=== PATIENT | female | born 1995 | race African-American/Black ===

== ENCOUNTER 2018-11-10 15:52 | Inpatient (IN) ==
[2018-11-10] MEDS ORDERED: ONDANSETRON 4 MG/2 ML VIAL IV PRN (16:09)
[2018-11-10] MEDS ORDERED: DINOPROSTONE VAG GEL 10 MG SYRINGE VAG ONE (16:13)
[2018-11-10] MEDS: LACTATED RINGERS 1,000 ML IV SCH (16:34)
[2018-11-10 16:38] LABS: Basophils % 0.3 % (0.0-0.8); Eosinophils # 0.1 10*3/uL (0.0-0.87); Eosinophils % 1.6 % (0.00-10.9); Hematocrit 33.4 VOL% (35.7-47.0); Hemoglobin 10.5 GM/DL (12.0-16.0); Immature Granulocytes % 0.5 %; Immature Granulocytes Absolute 0.04 #; Lymphocytes # 1.4 10*3/uL (1.4-4.0); Lymphocytes % 18.8 % (21.3-54.2); Mean Corpuscular HGB Conc 31.4 GM/DL (32-36); Mean Corpuscular Hemoglobin 27 PG (27-34); Mean Corpuscular Volume 84.8 FL (87-102); Mean Platelet Volume 11.3 FL (9.6-12.0); Monocytes # 0.6 10*3/uL (0.11-0.8); Monocytes % 8.7 % (1.7-12.7); Neutrophils # 5.2 10*3/uL (1.4-7.4); Neutrophils % 70.1 % (38.7-73.9); Platelet Count 209 T/CUMM (130-400); Red Blood Count 3.94 MC/CUMM (3.8-5.5); Red Cell Distribution Width 13.1 % (9.3-17.3); White Blood Count 7.4 T/CUMM (4-12)
[2018-11-11] MEDS ORDERED: AMPICILLIN INJ 2,000 MG in SODIUM CHLORIDE 0.9% 100 ML IV ONE (02:00)
[2018-11-11] MEDS ORDERED: OXYTOCIN/LR 20 UNIT/1,000 ML BAG IV SCH (02:00)
[2018-11-11] MEDS: LACTATED RINGERS 1,000 ML IV SCH (02:21)
[2018-11-11] MEDS: AMPICILLIN INJ 1,000 MG in SODIUM CHLORIDE 0.9% 100 ML IV SCH ×2 (06:05→10:41)
[2018-11-11] MEDS ORDERED: ePHEDrine 50 MG/ML AMP IV PRN (08:02)
[2018-11-11] MEDS ORDERED: NALOXONE 0.4 MG/ML VIAL IV PRN (08:02)
[2018-11-11] MEDS ORDERED: CITRIC ACID/SODIUM CITRATE 30 ML UDCUP PO ONE (08:02)
[2018-11-11] MEDS ORDERED: LACTATED RINGERS 1,000 ML IV ONE (08:02)
[2018-11-11] MEDS ORDERED: FAMOTIDINE 20 MG/2 ML VIAL IV ONE (08:02)
[2018-11-11] MEDS ORDERED: diphenhydrAMINE 50 MG/1 ML VIAL IV PRN ×2 (08:02)
[2018-11-11] MEDS ORDERED: MEPERIDINE 50 MG/1 ML VIAL IV PRN (08:11)
[2018-11-11] MEDS ORDERED: BUTORPHANOL 2 MG/ML VIAL IV PRN (08:13)
[2018-11-11] MEDS ORDERED: BUTORPHANOL 2 MG/ML VIAL ONE (08:17)
[2018-11-11] MEDS ORDERED: fentaNYL 2 MCG/ROPIV 0.2% EPID 100 ML EPIDURAL SCH (08:30)
[2018-11-11 11:05] LABS: Apearance,Urine CLEAR (Clear); Bilirubin,Urine Negative (Negative); Blood, Urine Negative (Negative); Glucose,Urine (UA) Negative (Negative); Ketones,Urine 5 mg/dL (Negative); Nitrite,Urine Negative (Negative); Protein,Urine Negative; RBC,Urine 1 /HPF (0-4); Squamous Epithelial Cell,Urine Occasional /HPF (0-10); Urine Color Yellow (Yellow); Urine Specific Gravity 1.013 (1.001-1.035); Urine Urobilinogen < 2.0 EU/DL (0.2-1.0); WBC,Urine <1 /HPF (0-6)
[2018-11-11] MEDS ORDERED: miSOPROStol 200 MCG TABLET ONE (11:39)
[2018-11-11] MEDS ORDERED: LIDOCAINE 1% 50 ML VIAL ONE (11:39)
[2018-11-11] MEDS ORDERED: METHYLERGONOVINE 0.2 MG/1 ML AMP ONE (11:40)
[2018-11-11] MEDS ORDERED: DIPH/TET/ACEL PERT BOOSTER VACCINE 0.5 ML VIAL IM ONE (14:15)
[2018-11-11] MEDS ORDERED: oxyCODONE/ACETAMINOPHEN 5-325 MG TABLET PO PRN ×2 (14:15)
[2018-11-11] MEDS ORDERED: HYDROCORTISONE 2.5% RECTAL CREAM 30 GM TUBE TOP PRN (14:15)
[2018-11-11] MEDS ORDERED: MEASLES/MUMPS/RUBELLA VACCINE 0.5 ML VIAL SUBCUT ONE (14:15)
[2018-11-11] MEDS ORDERED: WITCH HAZEL PADS 100/JAR TOP PRN (14:15)
[2018-11-11] MEDS ORDERED: RHO(D) IMMUNE GLOBULIN 300 MCG SYRINGE IM ONE (14:15)
[2018-11-11] MEDS ORDERED: BENZOCAINE 20%/MENTHOL 0.5% SPRAY 56 GM CAN TOP PRN (14:15)
[2018-11-11] MEDS ORDERED: ACETAMINOPHEN 325 MG TABLET PO PRN (14:15)
[2018-11-11] MEDS ORDERED: BISACODYL 10 MG SUPP RECTAL PRN (14:15)
[2018-11-11] MEDS ORDERED: LANOLIN 50% CREAM 0.3 OZ TUBE TOP PRN (14:15)
[2018-11-11] MEDS ORDERED: OXYTOCIN/LR 20 UNIT/1,000 ML BAG IV ONE ×2 (14:19→15:30)
[2018-11-11] MEDS: IBUPROFEN 800 MG TABLET PO PRN (18:43)
[2018-11-11] MEDS: DOCUSATE SODIUM 100 MG CAPSULE PO SCH (22:08)
[2018-11-12 05:39] LABS: Basophils % 0.2 % (0.0-0.8); Eosinophils # 0.1 10*3/uL (0.0-0.87); Eosinophils % 0.9 % (0.00-10.9); Hematocrit 29.7 VOL% (35.7-47.0); Hemoglobin 9.5 GM/DL (12.0-16.0); Immature Granulocytes % 0.5 %; Immature Granulocytes Absolute 0.05 #; Lymphocytes # 1.6 10*3/uL (1.4-4.0); Lymphocytes % 14.6 % (21.3-54.2); Mean Corpuscular Hemoglobin 27 PG (27-34); Mean Corpuscular Volume 84.6 FL (87-102); Mean Platelet Volume 11.2 FL (9.6-12.0); Monocytes # 0.8 10*3/uL (0.11-0.8); Monocytes % 7.1 % (1.7-12.7); Neutrophils # 8.5 10*3/uL (1.4-7.4); Neutrophils % 76.7 % (38.7-73.9); Platelet Count 189 T/CUMM (130-400); Red Blood Count 3.51 MC/CUMM (3.8-5.5); Red Cell Distribution Width 13.1 % (9.3-17.3); White Blood Count 11.1 T/CUMM (4-12)
[2018-11-12] MEDS: DOCUSATE SODIUM 100 MG CAPSULE PO SCH ×3 (09:20→20:59)
[2018-11-12] MEDS: IBUPROFEN 800 MG TABLET PO PRN (19:26)
[2018-11-13 07:13] VITALS: BP 97/52
[2018-11-13] MEDS: DOCUSATE SODIUM 100 MG CAPSULE PO SCH (09:37)
== END 2018-11-13 14:20 | disposition home or self-care (01) | DRG 560 ==
LOC: N.LDOUT 15:52 → N.LD 15:55 → N.OB 11-11 14:28
PROVIDERS: ADMIT Obstetrics & Gynecology; ATTEND Obstetrics & Gynecology

== ENCOUNTER 2020-01-24 20:54 | Inpatient (IN) ==
[~2020-01-24 20:54] MED LIST: OXYTOCIN/LR 20 UNIT/1,000 ML BAG IV SCH
[2020-01-24] MEDS ORDERED: AMPICILLIN 2,000 MG VIAL ONE (21:08)
[2020-01-24] MEDS ORDERED: MEPERIDINE 50 MG/1 ML VIAL ONE (21:09)
[2020-01-24] MEDS ORDERED: ONDANSETRON 4 MG/2 ML VIAL ONE (21:10)
[2020-01-24] MEDS ORDERED: ONDANSETRON 4 MG/2 ML VIAL IV PRN ×2 (21:17→23:19)
[2020-01-24] MEDS ORDERED: fentaNYL 100 MCG/2 ML VIAL ONE ×2 (21:18→21:42)
[2020-01-24] MEDS ORDERED: FAMOTIDINE 20 MG/2 ML VIAL IV ONE (21:18)
[2020-01-24] MEDS ORDERED: ePHEDrine 50 MG/ML AMP ONE (21:18)
[2020-01-24] MEDS ORDERED: CITRIC ACID/SODIUM CITRATE 30 ML UDCUP ONE (21:18)
[2020-01-24] MEDS ORDERED: ePHEDrine 50 MG/ML AMP IV PRN (21:18)
[2020-01-24] MEDS ORDERED: NALOXONE 0.4 MG/ML VIAL IV PRN (21:18)
[2020-01-24] MEDS ORDERED: CITRIC ACID/SODIUM CITRATE 30 ML UDCUP PO ONE (21:18)
[2020-01-24] MEDS ORDERED: OXYTOCIN/LR 20 UNIT/1,000 ML BAG IV ONE ×2 (21:19→23:19)
[2020-01-24] MEDS ORDERED: fentaNYL 2 MCG/ROPIV 0.2% EPID 100 ML EPIDURAL ONE (21:19)
[2020-01-24] MEDS ORDERED: fentaNYL 2 MCG/ROPIV 0.2% EPID 100 ML EPIDURAL SCH (21:30)
[2020-01-24 21:35] LABS: Basophils % 0.3 % (0.0-0.8); Eosinophils % 0.5 % (0.00-10.9); Hematocrit 36.2 VOL% (35.7-47.0); Hemoglobin 11.8 GM/DL (12.0-16.0); Immature Granulocytes % 0.5 %; Immature Granulocytes Absolute 0.03 #; Lymphocytes # 1.5 10*3/uL (1.4-4.0); Lymphocytes % 23.7 % (21.3-54.2); Mean Corpuscular HGB Conc 32.6 GM/DL (32-36); Mean Corpuscular Volume 84.6 FL (87-102); Monocytes % 10.5 % (1.7-12.7); Neutrophils % 64.5 % (38.7-73.9); Platelet Count 196 T/CUMM (130-400); Red Blood Count 4.28 MC/CUMM (3.8-5.5); Red Cell Distribution Width 13.8 % (9.3-17.3); White Blood Count 6.4 T/CUMM (4-12)
[2020-01-24 21:51] LABS: Bilirubin,Total 0.7 MG/DL (0.2-1.0); Calcium 9.7 MG/DL (8.5-10.1); Total Protein 7.3 G/DL (6.4-8.3)
[2020-01-24] MEDS ORDERED: LIDOCAINE 1% 50 ML VIAL ONE (22:18)
[2020-01-24] MEDS ORDERED: miSOPROStoL 200 MCG TABLET ONE (22:19)
[2020-01-24] MEDS ORDERED: TRANEXAMIC ACID 1,000 MG/10 ML VIAL ONE (22:19)
[2020-01-24] MEDS ORDERED: METHYLERGONOVINE 0.2 MG/1 ML AMP ONE (22:19)
[2020-01-24] MEDS ORDERED: CARBOPROST TROMETHAMINE 250 MCG/ML AMP IM ONE (22:20)
[2020-01-24] MEDS ORDERED: SODIUM CHLORIDE 0.9% 0 ML IV ONE (22:21)
[2020-01-24] MEDS: LACTATED RINGERS 1,000 ML IV PRN ×2 (22:44→22:45)
[2020-01-24] MEDS ORDERED: LANOLIN 50% CREAM 0.3 OZ TUBE TOP PRN (23:19)
[2020-01-24] MEDS ORDERED: ACETAMINOPHEN 325 MG TABLET PO PRN (23:19)
[2020-01-24] MEDS ORDERED: HYDROCORTISONE 2.5% RECTAL CREAM 30 GM TUBE TOP PRN (23:19)
[2020-01-24] MEDS ORDERED: oxyCODONE/ACETAMINOPHEN 5-325 MG TABLET PO PRN ×2 (23:19)
[2020-01-24] MEDS ORDERED: DIPH/TET/ACEL PERT BOOSTER VACCINE 0.5 ML VIAL IM ONE (23:19)
[2020-01-24] MEDS ORDERED: BISACODYL 10 MG SUPP RECTAL PRN (23:19)
[2020-01-24] MEDS ORDERED: RHO(D) IMMUNE GLOBULIN 300 MCG SYRINGE IM ONE (23:19)
[2020-01-24] MEDS ORDERED: BENZOCAINE 20%/MENTHOL 0.5% SPRAY 56 GM CAN TOP PRN (23:19)
[2020-01-24] MEDS ORDERED: IBUPROFEN 800 MG TABLET PO PRN (23:19)
[2020-01-24] MEDS ORDERED: WITCH HAZEL PADS 100/JAR TOP PRN (23:19)
[2020-01-24] MEDS ORDERED: MEASLES/MUMPS/RUBELLA VACCINE 0.5 ML VIAL SUBCUT ONE (23:19)
[2020-01-24 23:28] LABS: Cord Arterial Blood HCO3 18.7 MMOL/L
[2020-01-24 23:33] LABS: Cord Venous Blood HCO3 20.4 MMOL/L; Cord Venous Blood PCO2 52.6 MMHG; Cord Venous Blood PO2 27.4
[2020-01-25 00:22] LABS: Apearance,Urine CLEAR (Clear); Bilirubin,Urine Negative (Negative); Blood, Urine Negative (Negative); Glucose,Urine (UA) Negative (Negative); Hyaline Casts,Urine 1 /LPF (0-3); Ketones,Urine 20 mg/dL (Negative); Mucus,Urine Occasional /LPF (Occasional); Nitrite,Urine Negative (Negative); Protein,Urine Negative; RBC,Urine 1 /HPF (0-4); Squamous Epithelial Cell,Urine Occasional /HPF (0-10); Urine Color Yellow (Yellow); Urine Specific Gravity 1.019 (1.001-1.035); Urine Urobilinogen < 2.0 EU/DL (0.2-1.0); WBC,Urine 1 /HPF (0-6)
[2020-01-25 04:18] LABS: Basophils % 0.2 % (0.0-0.8); Eosinophils % 0.1 % (0.00-10.9); Hematocrit 34.2 VOL% (35.7-47.0); Hemoglobin 11.3 GM/DL (12.0-16.0); Immature Granulocytes % 0.5 %; Immature Granulocytes Absolute 0.05 #; Lymphocytes # 1.1 10*3/uL (1.4-4.0); Lymphocytes % 11.3 % (21.3-54.2); Mean Platelet Volume 11.7 FL (9.6-12.0); Monocytes % 3.8 % (1.7-12.7); Neutrophils % 84.1 % (38.7-73.9); Platelet Count 186 T/CUMM (130-400); Red Blood Count 4.07 MC/CUMM (3.8-5.5); Red Cell Distribution Width 13.7 % (9.3-17.3); White Blood Count 9.4 T/CUMM (4-12)
[2020-01-25] MEDS: DOCUSATE SODIUM 100 MG CAPSULE PO SCH ×2 (09:04→20:57)
[2020-01-26 07:35] VITALS: BP 103/55
[2020-01-26] MEDS: DOCUSATE SODIUM 100 MG CAPSULE PO SCH (08:55)
== END 2020-01-26 11:35 | disposition home or self-care (01) | DRG 560 ==
LOC: N.LDOUT 20:54 → N.LD 20:58 → N.OB 01-25 02:37
PROVIDERS: ADMIT Obstetrics & Gynecology; ATTEND Obstetrics & Gynecology